=== PATIENT | male | born 1985 | race American Indian/Alaskan Native ===

== ENCOUNTER 2021-05-30 19:51 | Emergency (ER) | payer SELFPAY ==
[2021-05-30] MEDS ORDERED: ASPIRIN 325 MG TAB PO ONE (20:42)
--- NOTE | 2021-05-30 20:47 | Event Note ---
ED Screening Note Date of service: 05/30/21 Time: 20:43 ED Screening Note: Patient is a 36-year-old -[place] male with a history of heavy tobacco abuse who presents to the ED with complaint of acute onset persistent intermittent left-sided chest pain that radiates to the left shoulder and left arm as well as left lateral neck for the last 1 week, worse in the last 2 days. Patient states that when the chest pain is present, he also experiences shortness of breath even at rest with nausea. 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 Patient states that one of his uncles in his early 40s of cardiac arrest. Patient also complains of abdominal pain mild dry cough for the last 2 days. Patient denies diaphoresis, dizziness, syncope, palpitations, sore throat, vomiting, fever, chills, traumatic injury, back pain or fall and traumatic injury. This initial assessment/diagnostic orders/clinical plan/treatment(s) is/are subject to change based on patients health status, clinical progression and re- assessment by fellow clinical providers in the ED. Further treatment and workup at subsequent clinical providers discretion. Patient/guardian urged not to elope from the ED as their condition may be serious if not clinically assessed and managed. Initial orders include: EKG, CBC, CMP, BNP, troponin, chest x-ray
--- NOTE | 2021-05-30 21:08 | Emergency Department Report ---
ED Chest Pain HPI - General Chief Complaint: Chest Pain Stated Complaint: CHESTPAIN PUI?: No Time Seen by Provider: 05/30/21 21:03 Source: patient Mode of arrival: Ambulatory Limitations: No Limitations - History of Present Illness Initial Comments: Chief complaint: Chest pain HPI: This 28-year-old male with history of tobacco/nicotine dependence, 1 pack/day smoker no other significant past medical history who presents with l eft-sided throbbing achy chest pain. Persistent at rest. He feels as if his left pectoralis muscle is larger than the right. Feels like there is fluid in his chest. He has mild shortness of breath. He has productive cough. He feels tired. He has had chills. When he moves his left arm it exacerbates the pain. 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 Father no sniffing past medical history Mother has history of stroke hypertension Uncle of heart attack MD Complaint: chest pain -: Gradual, days(s) (4 days) Onset: during rest Pain Location: left chest Pain Radiation: neck Severity: moderate Severity scale (0 -10): 7 Quality: other (Stabbing pulsing throbbing) Consistency: intermittent Improves With: other (Ibuprofen only minimal relief) Worsens With: movement (Arm movement) re: dyspnea Other Symptoms: cough, other (Fatigue, chills) Treatments Prior to Arrival: none - Related Data Previous Rx's Medication Instructions Recorded Last Taken Type Acetaminophen/Codeine [Tylenol #3] 1 tab PO Q6H PRN #14 tab 03/12/16 Unknown Rx Amoxicillin [Amoxicillin TAB] 875 mg PO BID #20 tablet 03/12/16 Unknown Rx HYDROcodone/APAP 5-325 [[place] 1 each PO Q6HR PRN #10 tablet 05/30/21 Unknown Rx 5/325] Ibuprofen [Motrin 400 MG tab] 400 mg PO TID 5 Days #15 tablet 05/30/21 Unknown Rx Allergies Allergy/AdvReac Type Severity Reaction Status Date / Time No Known Allergies Allergy Verified 03/12/16 20:09 Heart Score - HEART Score History: Slightly suspicious EKG: Non-specific Age: < 45 Risk factors: 1-2 risk factors Troponin: < normal limit HEART Score: 2 - EKG Read Time Time EKG Completed: 20:04 EKG Read Time: 20:25 - Critical Actions Critical Actions: 0-3 pts:0.9-1.7%risk of adverse cardiac event.Candidate for discharge ED Review of Systems ROS: Stated complaint: CHESTPAIN Other details as noted in HPI Comment: All other systems reviewed and negative Constitutional: chills, other (Fatigue) Respiratory: cough, shortness of breath Cardiovascular: chest pain ED Past Medical Hx - Past Medical History Previous Medical History?: No - Surgical History Past Surgical History?: No - Family History Family history: CAD/CO, hypertension, vascular disease - Social History Smoking Status: Current Every Day Smoker Substance Use Type: None - Medications Home Medications: Home Medications Medication Instructions Recorded Confirmed Last Taken Type Acetaminophen/Codeine [Tylenol #3] 1 tab PO Q6H PRN #14 tab 03/12/16 Unknown Rx Amoxicillin [Amoxicillin TAB] 875 mg PO BID #20 tablet 03/12/16 Unknown Rx HYDROcodone/APAP 5-325 [[place] 1 each PO Q6HR PRN #10 tablet 05/30/21 Unknown Rx 5/325] Ibuprofen [Motrin 400 MG tab] 400 mg PO TID 5 Days #15 tablet 05/30/21 Unknown Rx ED Physical Exam - General Limitations: No Limitations General appearance: alert, in no apparent distress - Head Head exam: Present: atraumatic, normocephalic - Eye Eye exam: Present: normal appearance - ENT ENT exam: Present: mucous membranes moist - Neck Neck exam: Present: normal inspection, full ROM - Respiratory Respiratory exam: Present: normal lung sounds bilaterally. Absent: respiratory distress, wheezes, rales - Cardiovascular Cardiovascular Exam: Present: regular rate, normal rhythm, normal heart sounds, other (Left pectoralis slightly larger than right pectoralis). Absent: systolic murmur, diastolic murmur, rubs, gallop - GI/Abdominal GI/Abdominal exam: Present: soft, normal bowel sounds. Absent: distended, rebound - Rectal Rectal exam: Present: deferred - Extremities Exam Extremities exam: Present: normal inspection - Back Exam Back exam: Present: normal inspection - Neurological Exam Neurological exam: Present: alert, oriented X3 - Psychiatric Psychiatric exam: Present: normal affect, normal mood - Skin Skin exam: Present: warm, dry, intact, normal color. Absent: rash ED Course Vital Signs 05/30/21 05/30/21 20:22 21:08 Temperature 97.7 F Pulse Rate 67 64 Respiratory 18 Rate Blood Pressure 130/82 [Left] O2 Sat by Pulse 100 100 Oximetry ED Medical Decision Making - Lab Data Result diagrams: 05/30/21 21:02 05/30/21 21:02 Laboratory Results - last 24 hr 05/30/21 05/30/21 21:02 21:02 WBC 6.2 RBC 4.43 Hgb 14.0 Hct 42.2 MCV 95 H MCH 32 MCHC 33 RDW 12.7 L Plt Count 215 Lymph % (Auto) 17.2 [place] % (Auto) 5.9 Eos % (Auto) 0.8 Baso % (Auto) 0.4 Lymph # (Auto) 1.1 L [place] # (Auto) 0.4 Eos # (Auto) 0.1 Baso # (Auto) 0.0 Seg Neutrophils % 75.7 H Seg Neutrophils # 4.7 Sodium 138 Potassium 4.0 Chloride 102.5 Carbon Dioxide 27 Anion Gap 13 BUN 10 Creatinine 1.1 Estimated GFR > 60 BUN/Creatinine Ratio 9 Glucose 95 Calcium 9.3 Total Bilirubin 0.40 AST 14 ALT 14 Alkaline Phosphatase 95 Troponin T < 0.010 Total Protein 7.1 Albumin 4.3 Albumin/Globulin Ratio 1.5 - EKG Data -: EKG Interpreted by Dc EKG shows normal: sinus rhythm Rate: normal - EKG Data 05/30/21 21:48 EKG obtained 2004 EKG interpreted by ak Rate 60 bpm normal axis normal intervals no ST elevation nonischemic T wave pattern right bundle branch block - Radiology Data Radiology results: report reviewed Patient Name: TRISH VASQUEZ Gender: Male Date of : 1985 Referring Provider: KEHINDE MCALLISTER Organization: [facility] Accession Number: [id number] Requested Date: May 30, 2021 20:41 Report Status: Final Requested Procedure: 1 Procedure Description: XR chest routine 2V Modality: XR Findings Reporting MD: Herber Young Dictation Time: May 30, 2021 20:21 Blood Bank Supervisor: Not available Loss Prevention Manager Date: CHEST 2 VIEWS INDICATION / CLINICAL INFORMATION: chest pain. FINDINGS: SUPPORT DEVICES: None. HEART / MEDIASTINUM: No significant abnormality. LUNGS / PLEURA: No significant pulmonary or pleural abnormality. No pneumothorax. ADDITIONAL FINDINGS: No significant additional findings. IMPRESSION: 1. No acute findings. Signer Name: Herber Young MD Signed: 05/30/2021 8:21 PM Workstation Name: [id number] - Medical Decision Making 1. Chest wall pain: Atypical for ACS. Heart score 2. CBC chemistry within normal limits chest radiograph without evidence of pneumonia or pneumothorax. Suspect pectoralis strain. I have prescribed ibuprofen [place]. I referred patient to cardiology and outpatient medicine physician Faxed referral request form to [facility]. Critical care attestation.: If time is entered above; I have spent that time in minutes in the direct care of this critically ill patient, excluding procedure time. ED Disposition Clinical Impression: Chest wall pain Disposition: HOME / SELF CARE / HOMELESS Is pt being admited?: No Does the pt Need Aspirin: No Condition: Stable Instructions: Chest Wall Pain Prescriptions: Ibuprofen [Motrin 400 MG tab] 400 mg PO TID 5 Days #15 tablet HYDROcodone/APAP 5-325 [[place] 5/325] 1 each PO Q6HR PRN #10 tablet PRN Reason: Pain Referrals: ALEX CARDENAS MD [Staff Physician] - 3-5 Days TIFF WAN MD [Staff Physician] - 3-5 Days
[2021-05-30 21:13] LABS: Basophils % (Auto) 0.4 % (0.0-1.8); Eosinophils # (Auto) 0.1 K/mm3 (0.0-0.4); Eosinophils % (Auto) 0.8 % (0.0-4.3); Hematocrit 42.2 % (35.5-45.6); Lymphocytes # (Auto) 1.1 K/mm3 (1.2-5.4); Lymphocytes % (Auto) 17.2 % (13.4-35.0); Mean Corpuscular HGB Conc 33 % (32-34); Mean Corpuscular Volume 95 fl (84-94); Monocytes # (Auto) 0.4 K/mm3 (0.0-0.8); Monocytes % (Auto) 5.9 % (0.0-7.3); Platelet Count 215 K/mm3 (140-440); Red Blood Count 4.43 M/mm3 (3.65-5.03); Red Cell Distribution Width 12.7 % (13.2-15.2)
--- NOTE | 2021-05-30 21:25 | XRay Report ---
CHEST 2 VIEWS INDICATION / CLINICAL INFORMATION: chest pain. FINDINGS: SUPPORT DEVICES: None. HEART / MEDIASTINUM: No significant abnormality. LUNGS / PLEURA: No significant pulmonary or pleural abnormality. No pneumothorax. ADDITIONAL FINDINGS: No significant additional findings. IMPRESSION: 1. No acute findings. Signer Name: Herber Young MD Signed: 05/30/2021 9:21 PM Workstation Name: [id number]
[2021-05-30 21:39] LABS: Alanine Aminotransferase 14 units/L (7-56); Albumin 4.3 g/dL (3.9-5); BUN/Creatinine Ratio 9; Blood Urea Nitrogen 10 mg/dL (9-20); Calcium 9.3 mg/dL (8.4-10.2); Hemolysis Index 10
[2021-05-30] MEDS ORDERED: IBUPROFEN 800 MG TAB PO ONE (21:49)
[2021-05-30] MEDS ORDERED: HYDROcodone/ACETAMINOPHEN 5-325 MG TAB PO ONE (21:49)
[2021-05-30 22:42] VITALS: BP 114/70
== END 2021-05-30 22:45 | disposition home or self-care (01) ==
LOC: ED 19:51
DX: R07.89 Other chest pain (principal); F17.200 Nicotine dependence, unspecified, uncomplicated
CPT/HCPCS: 36415; 71046; 80053; 84484; 85025; 93005; 99284